=== PATIENT | female | born 1930 | race Caucasian/White ===

== ENCOUNTER 2016-05-25 13:23 | Emergency (ER) | payer MEDICARE ==
[2016-05-25] MEDS ORDERED: HYDROCODONE/APAP 5/325MG TABLET PO ONE (13:58)
--- NOTE | 2016-05-25 14:04 | Emergency Department Record ---
History of Present Illness - General Chief complaint: Extremity Problem Stated complaint: FELL INJURED RIGHT ELBOW Time Seen by Provider: 05/25/16 13:58 Source: Patient Mode of Arrival: Ambulatory Limitations: No limitations - History of Present Illness Initial comments: 85 yo female presents to ED with a CC of right elbow and right sided chest pain following a fall that occurred 3 days ago, however reports that her right elbow started to hurt after picking up a laundry basket this morning followed by a loud "crack" sound. Patient reports pain with supination and forearm extension. Patient denies abdominal pain, nausea, vomiting, neck pain or head injury. MD Complaint: Extremity pain, Joint pain Onset/Timin -: Days(s) Location: Right, Elbow, Other History of Same: No Radiation: Distal Severity scale (1-10): 6 Quality: Aching Consistency: Intermittent Improves with: Immobilization Worsens with: Other Associated Symptoms: Denies other symptoms - Related Data Home Medications Medication Instructions Recorded Confirmed Last Taken Amlodipine Besylate [Norvasc] 10 mg PO DAILY 05/31/15 05/25/16 05/25/16 Aspirin [Aspirin EC] 325 mg PO DAILY 05/31/15 05/25/16 05/25/16 Hydrochlorothiazide [Hctz 25Mg] 25 mg PO DAILY 05/31/15 05/25/16 05/25/16 Metformin HCl [Glucophage] 1,000 mg PO BID 05/31/15 05/25/16 05/25/16 Penicillin V Potassium 500 mg PO DAILY 05/31/15 05/25/16 05/25/16 Quinapril HCl [Accupril] 40 mg PO DAILY 05/31/15 05/25/16 05/25/16 Simvastatin [Zocor] 80 mg PO QHS 05/31/15 05/25/16 05/25/16 Previous Rx's Medication Instructions Recorded Hydrocodone/Acetaminophen [[place] 1 tab PO Q6H PRN #15 tab 05/25/16 5mg/325mg] Allergies Allergy/AdvReac Type Severity Reaction Status Date / Time morphine Allergy HYPERSENSIT Verified 05/25/16 13:46 IVITY Sulfa (Sulfonamide Allergy RASH Verified 05/25/16 13:46 Antibiotics) Travel Screening - Travel/Exposure Within Last 30 Days Have you traveled within the last 30 days?: No Review of Systems Constitutional: Denies: Chills, Fever, Malaise, Night sweats Eyes: Denies: Eye discharge, Eye pain ENT: Denies: Congestion, Ear pain, Epistaxis Respiratory: Denies: Cough, Dyspnea Cardiovascular: Reports: Chest pain (right rib pain). Denies: Dyspnea on exertion Endocrine: Denies: Fatigue, Heat or cold intolerance Gastrointestinal: Denies: Abdominal pain, Nausea, Vomiting Genitourinary: Denies: Incontinence, Retention Musculoskeletal: Reports: Arthralgia. Denies: Back pain, Gout, Joint swelling Skin: Reports: Bruising. Denies: Change in color Neurological: Denies: Abnormal gait, Confusion, Headache, Seizure Psychiatric: Denies: Anxiety Hematological/Lymphatic: Denies: Anemia, Blood Clots Past Medical History - SOCIAL HISTORY Smoking Status: Never smoker Alcohol Use: None Drug Use: None - RESPIRATORY Hx Respiratory Disorders: No - CARDIOVASCULAR Hx Cardio Disorders: Yes Hx Hypertension: Yes - NEURO Hx Neuro Disorders: No - GI Hx GI Disorders: No - Hx Genitourinary Disorders: No - ENDOCRINE Hx Endocrine Disorders: Yes Hx Diabetes: Yes Hx Thyroid Disease: No - MUSCULOSKELETAL Hx Arthritis: Yes Comment:: right shoulder stiffness - PSYCH Hx Psych Problems: No - HEMATOLOGY/ONCOLOGY Hx Hematology/Oncology Disorders: No Family Medical History Any Significant Family History?: No Physical Exam - General General Appearance: Alert, Oriented x3, Cooperative, Moderate distress Limitations: No limitations - Head Head exam: Atraumatic, Normocephalic, Normal inspection Head exam detail: negative: Abrasion, Contusion, Heard's sign, General tenderness, Hematoma, Laceration - Eye Eye exam: Normal appearance. negative: Conjunctival injection, Periorbital swelling, Periorbital tenderness, Scleral icterus - ENT Ear exam: negative: Auricular hematoma, Auricular trauma Nasal Exam: negative: Active bleeding, Discharge, Dried blood, Foreign body Mouth exam: negative: Drooling, Laceration, Muffled voice, Tongue elevation - Neck Neck exam: Normal inspection. negative: Meningismus, Tenderness - Respiratory Respiratory exam: Normal lung sounds bilaterally, Chest wall tenderness (right lateral ribs). negative: Rales, Respiratory distress, Rhonchi, Stridor - Cardiovascular Cardiovascular Exam: Regular rate, Normal rhythm, Normal heart sounds, Systolic murmur - GI/Abdominal GI/Abdominal exam: Soft. negative: Rebound, Rigid, Tenderness - Rectal Rectal exam: Deferred - exam: Deferred - Extremities Extremities exam: Joint swelling, Tenderness, Other (STS and ecchymosis to the right elbow, pain with supination and forearm flexion.). negative: Calf tenderness, Pedal edema - Back Back exam: Denies: CVA tenderness (R), CVA tenderness (L) - Neurological Neurological exam: Alert, Normal gait, Oriented X3 - Psychiatric Psychiatric exam: Normal affect, Normal mood - Skin Skin exam: Normal color. negative: Abrasion Type of lesion: negative: abrasion Course Vital Signs 05/25/16 13:41 Temperature 98.5 F Pulse Rate 79 Respiratory 20 Rate Blood Pressure 148/81 Pulse Ox 97 - Reevaluation(s) Reevaluation #1: 05/25/16 15:21 Right elbow: Non-displaced supracondylar fracture CT Chest: ? non-displaced 4th rib fracture, small pleural effusion, coronary vascular calcifications present. Patient and family were updated on all results, will splint and arrange follow- up with Dr. Meza in the Clinic. Disposition Disposition: Discharge Clinical Impression: Supracondylar fracture of humerus Qualifiers: Encounter type: initial encounter Fracture type: closed Laterality: right Qualified Code(s): S42.411A - Displaced simple supracondylar fracture without intercondylar fracture of right humerus, initial encounter for closed fracture Disposition: Home, Self-Care Condition: (2) Stable Instructions: Elbow Fracture in Adults (ED) Additional Instructions: Return to ED if your symptoms worsen or if you have any concerns. Prashant as directed. Follow-up with Dr. Meza in the [facility] on . Prescriptions: Hydrocodone/Acetaminophen [[place] 5mg/325mg] 1 tab PO Q6H PRN #15 tab PRN Reason: Pain - General Referrals: WILLIAM MEZA [DOCTOR OF OSTEOPATH] - [facility] [Provider Group] Forms: Patient Portal Access Time of Disposition: 15:35
== END 2016-05-25 16:00 | disposition home or self-care (01) ==
LOC: ER 13:23
DX: S42.411A Displaced simple supracondylar fracture without intercondylar fracture of right humerus, initial encounter for closed fracture (principal); R07.89 Other chest pain; I10 Essential (primary) hypertension; W19.XXXA Unspecified fall, initial encounter
CPT/HCPCS: 71250; 99283; 99284